=== PATIENT | male | born 1980 | race Caucasian/White ===

== ENCOUNTER 2020-10-24 01:26 | Observation (INO) ==
[2020-10-24 02:11] LABS: Basophils % 0.4 % (0.0-0.8); Eosinophils # 0.3 10*3/uL (0.0-0.87); Eosinophils % 3.6 % (0.00-10.9); Hematocrit 48.7 VOL% (42.0-52.0); Hemoglobin 15.8 GM/DL (14.0-18.0); Immature Granulocytes % 0.3 %; Immature Granulocytes Absolute 0.03 #; Lymphocytes # 4.1 10*3/uL (1.4-4.0); Lymphocytes % 45.9 % (21.2-54.2); Mean Corpuscular HGB Conc 32.4 GM/DL (32-36); Mean Corpuscular Volume 100.6 FL (87-102); Mean Platelet Volume 11.6 FL (9.6-12.0); Monocytes % 9.5 % (1.7-12.7); Neutrophils % 40.3 % (38.7-73.9); Platelet Count 210 T/CUMM (130-400); Red Blood Count 4.84 MC/CUMM (3.8-5.5); Red Cell Distribution Width 13.7 % (9.3-17.3)
[2020-10-24 02:19] LABS: Albumin 3.4 G/DL (3.4-5.0); Bilirubin,Total 0.5 MG/DL (0.2-1.0); Calcium 8.6 MG/DL (8.5-10.1); Osmolality,Calculated 282.5 MOS/KG (273-304); Potassium 3.9 MMOL/L (3.5-5.1); Total Protein 6.5 G/DL (5.0-7.5)
[2020-10-24 02:58] LABS: Eosinophils 7 % (0-10); Lymphocytes 51 % (20-55); Segmented Neutrophils 38 % (50-85); Total Cells Counted 100
[2020-10-24 02:59] LABS: Microcytosis Slight; Reactive Lymphocytes Few; Smudge Cells Few
[2020-10-24 03:00] LABS: Burr Cells Few; Ovalocytes Few; Schistocytes Few; Tear Drop Cells 1+
[2020-10-24 03:01] LABS: Platelet Estimate Decreased
[2020-10-24] MEDS ORDERED: NICOTINE 21 MG/24 HR PATCH TRANSDERM PRN (03:23)
[2020-10-24] MEDS ORDERED: hydrALAZINE 20 MG/1 ML VIAL IV PRN (03:23)
[2020-10-24] MEDS ORDERED: GLUCAGON 1 MG VIAL IM PRN (03:23)
[2020-10-24] MEDS ORDERED: ONDANSETRON 4 MG/2 ML VIAL IV PRN (03:23)
[2020-10-24] MEDS ORDERED: DEXTROSE 50% 25 GM/50 ML VIAL IV PRN (03:23)
[2020-10-24] MEDS ORDERED: ENOXAPARIN 80 MG/0.8 ML SYRINGE SUBCUT SCH ×2 (03:30→05:30)
[2020-10-24 03:54] LABS: Risk Ratio 3.91; Thyroid Stimulating Hormone 2.79 uIU/ml (0.358-3.74); VLDL CHOLESTEROL 61.8 MG/DL
[2020-10-24] MEDS ORDERED: NITROGLYCERIN SL 0.4 MG TABLET SL PRN (05:19)
[2020-10-24] MEDS ORDERED: ASPIRIN 325 MG TABLET PO SCH (09:00)
[2020-10-24] MEDS ORDERED: amLODIPine 5 MG TABLET PO STA (09:04)
[2020-10-24] MEDS ORDERED: POTASSIUM CHLORIDE RIDER 10 MEQ in PREMIX 1 EACH IV PRN (12:55)
[2020-10-24] MEDS ORDERED: MAGNESIUM SULF RIDER 2 GM in PREMIX 1 EACH IV PRN (12:55)
[2020-10-24 13:03] LABS: Barbiturates Screen,Urine Negative (Negative); Benzodiazepines Screen,Urine Negative (Negative); Cannabinoid Screen,Urine Positive (Negative); Opiate Screen,Urine Negative (Negative); Phencyclidine Screen,Urine Negative (Negative)
[2020-10-25] MEDS ORDERED: ENOXAPARIN 80 MG/0.8 ML SYRINGE SUBCUT SCH (03:30)
[2020-10-25 05:54] LABS: Basophils % 0.3 % (0.0-0.8); Eosinophils # 0.3 10*3/uL (0.0-0.87); Eosinophils % 4.9 % (0.00-10.9); Hematocrit 47.4 VOL% (42.0-52.0); Hemoglobin 15.8 GM/DL (14.0-18.0); Immature Granulocytes % 0.2 %; Immature Granulocytes Absolute 0.01 #; Lymphocytes # 2.5 10*3/uL (1.4-4.0); Lymphocytes % 39.1 % (21.2-54.2); Mean Corpuscular HGB Conc 33.3 GM/DL (32-36); Mean Corpuscular Volume 99.8 FL (87-102); Mean Platelet Volume 11.4 FL (9.6-12.0); Monocytes % 8.9 % (1.7-12.7); Neutrophils % 46.6 % (38.7-73.9); Platelet Count 186 T/CUMM (130-400); Red Blood Count 4.75 MC/CUMM (3.8-5.5); Red Cell Distribution Width 13.5 % (9.3-17.3); White Blood Count 6.5 T/CUMM (4-12)
[2020-10-25 06:16] LABS: Platelet Estimate Adequate
[2020-10-25 06:32] LABS: Calcium 8.4 MG/DL (8.5-10.1); Osmolality,Calculated 281.4 MOS/KG (273-304); Potassium 3.9 MMOL/L (3.5-5.1)
[2020-10-25] MEDS ORDERED: diphenhydrAMINE CAP 25 MG CAPSULE PO ONE (08:00)
[2020-10-25] MEDS ORDERED: DIAZEPAM 5 MG TABLET PO ONE (08:00)
[2020-10-25] MEDS: ASPIRIN EC 81 MG TABLET PO SCH (08:30)
[2020-10-25] MEDS: SODIUM CHLORIDE 0.9% 1,000 ML IV SCH ×2 (08:30→17:58)
[2020-10-25] MEDS ORDERED: amLODIPine 5 MG TABLET PO SCH (09:00)
[2020-10-25] MEDS ORDERED: HEPARIN/NACL 0.9% 2 UNITS/ML 1,000 ML IV ONE (09:30)
[2020-10-25] MEDS ORDERED: LIDOCAINE 1% 20 ML VIAL ONE (09:30)
[2020-10-25] MEDS ORDERED: diphenhydrAMINE 50 MG/1 ML VIAL ONE ×2 (09:48→11:02)
[2020-10-25] MEDS ORDERED: MIDAZOLAM 2 MG/2 ML VIAL ONE (09:48)
[2020-10-25] MEDS ORDERED: HYDROmorphone 2 MG/1 ML VIAL ONE (09:49)
[2020-10-25] MEDS: PANTOPRAZOLE 40 MG TABLET PO SCH (12:52)
[2020-10-25] MEDS: amLODIPine 2.5 MG TABLET PO SCH (12:52)
[2020-10-25] MEDS ORDERED: ATORVASTATIN 40 MG TABLET PO SCH (21:00)
[2020-10-26 04:15] VITALS: BP 118/77
[2020-10-26 07:35] LABS: Basophils % 0.3 % (0.0-0.8); Eosinophils # 0.3 10*3/uL (0.0-0.87); Eosinophils % 4.3 % (0.00-10.9); Hematocrit 43.4 VOL% (42.0-52.0); Hemoglobin 14.2 GM/DL (14.0-18.0); Immature Granulocytes % 0.3 %; Immature Granulocytes Absolute 0.02 #; Lymphocytes % 34.6 % (21.2-54.2); Mean Corpuscular HGB Conc 32.7 GM/DL (32-36); Mean Corpuscular Volume 99.8 FL (87-102); Mean Platelet Volume 11.7 FL (9.6-12.0); Monocytes % 7.2 % (1.7-12.7); Neutrophils % 53.3 % (38.7-73.9); Platelet Count 169 T/CUMM (130-400); Red Blood Count 4.35 MC/CUMM (3.8-5.5); Red Cell Distribution Width 13.3 % (9.3-17.3); White Blood Count 5.9 T/CUMM (4-12)
[2020-10-26 07:52] LABS: Calcium 8.3 MG/DL (8.5-10.1); Osmolality,Calculated 280.4 MOS/KG (273-304); Potassium 4.5 MMOL/L (3.5-5.1)
[2020-10-26] MEDS: ASPIRIN EC 81 MG TABLET PO SCH (08:39)
[2020-10-26] MEDS: PANTOPRAZOLE 40 MG TABLET PO SCH (08:39)
[2020-10-26] MEDS: amLODIPine 2.5 MG TABLET PO SCH (08:39)
[2020-10-26] MEDS: SODIUM CHLORIDE 0.9% 1,000 ML IV SCH (09:49)
== END 2020-10-26 10:56 | disposition home or self-care (01) ==
LOC: N.ED 01:26 → N.EDINP 01:26 → N.TELEN 16:03
PROVIDERS: ADMIT Internal Medicine; ATTEND Internal Medicine

== ENCOUNTER 2021-07-13 00:48 | Observation (INO) ==
[2021-07-13] MEDS ORDERED: ONDANSETRON 4 MG/2 ML VIAL IV PRN (02:09)
[2021-07-13] MEDS ORDERED: DEXTROSE 50% 25 GM/50 ML SYRINGE IV PRN (02:09)
[2021-07-13] MEDS ORDERED: GLUCAGON 1 MG VIAL IM PRN (02:09)
[2021-07-13] MEDS ORDERED: LORazepam 2 MG/1 ML VIAL IV PRN (02:15)
[2021-07-13] MEDS ORDERED: hydrALAZINE 20 MG/1 ML VIAL IV PRN (06:11)
[2021-07-13] MEDS ORDERED: ENOXAPARIN 40 MG/0.4 ML SYRINGE SUBCUT SCH (07:00)
[2021-07-13 07:08] LABS: Basophils # 0.1 10*3/uL (0.0-0.2); Basophils % 0.6 % (0.0-0.8); Eosinophils # 0.3 10*3/uL (0.0-0.87); Eosinophils % 3.3 % (0.00-10.9); Hemoglobin 16.4 GM/DL (14.0-18.0); Immature Granulocytes % 0.2 %; Immature Granulocytes Absolute 0.02 #; Lymphocytes # 3.4 10*3/uL (1.4-4.0); Lymphocytes % 39.4 % (21.2-54.2); Mean Corpuscular HGB Conc 33.5 GM/DL (32-36); Mean Corpuscular Volume 100.2 FL (87-102); Mean Platelet Volume 11.9 FL (9.6-12.0); Monocytes % 9.2 % (1.7-12.7); Neutrophils % 47.3 % (38.7-73.9); Platelet Count 214 T/CUMM (130-400); Red Blood Count 4.89 MC/CUMM (3.8-5.5); Red Cell Distribution Width 13.2 % (9.3-17.3); White Blood Count 8.6 T/CUMM (4-12)
[2021-07-13 07:31] LABS: Albumin 3.3 G/DL (3.4-5.0); Bilirubin,Total 1.3 MG/DL (0.20-1.00); Osmolality,Calculated 281.4 MOS/KG (273-304); Potassium 4.4 MMOL/L (3.5-5.1); Risk Ratio 4.21; Total Protein 6.4 G/DL (6.4-8.2); VLDL Cholesterol 47.6 MG/DL
[2021-07-13] MEDS: PANTOPRAZOLE 40 MG TABLET PO SCH (08:44)
[2021-07-13 09:51] LABS: Barbiturates Screen,Urine Negative (Negative); Benzodiazepines Screen,Urine Negative (Negative); Cannabinoid Screen,Urine Negative (Negative); Opiate Screen,Urine Negative (Negative); Phencyclidine Screen,Urine Negative (Negative)
[2021-07-13] MEDS ORDERED: ACETAMINOPHEN 325 MG TABLET PO PRN (09:57)
[2021-07-13] MEDS: ASPIRIN CHEW 81 MG TABLET PO SCH (09:59)
[2021-07-13] MEDS: amLODIPine 2.5 MG TABLET PO SCH (09:59)
[2021-07-13] MEDS: FUROSEMIDE 40 MG/4 ML VIAL IV SCH (10:03)
[2021-07-13] MEDS ORDERED: LIDOCAINE 1%/EPI INJ 20 ML VIAL MISC INJ ONE (10:25)
[2021-07-13] MEDS: SULFAMETHOX/TRIMETHOPRIM 800-160 MG TABLET PO SCH ×2 (15:19→20:33)
[2021-07-14 05:20] LABS: Basophils # 0.1 10*3/uL (0.0-0.2); Basophils % 0.5 % (0.0-0.8); Eosinophils # 0.3 10*3/uL (0.0-0.87); Eosinophils % 3.4 % (0.00-10.9); Hematocrit 49.9 VOL% (42.0-52.0); Hemoglobin 16.3 GM/DL (14.0-18.0); Immature Granulocytes % 0.3 %; Immature Granulocytes Absolute 0.03 #; Lymphocytes # 2.1 10*3/uL (1.4-4.0); Mean Corpuscular HGB Conc 32.7 GM/DL (32-36); Mean Corpuscular Volume 101.8 FL (87-102); Mean Platelet Volume 11.9 FL (9.6-12.0); Monocytes % 6.4 % (1.7-12.7); Neutrophils % 66.4 % (38.7-73.9); Platelet Count 208 T/CUMM (130-400); Red Cell Distribution Width 13.1 % (9.3-17.3); White Blood Count 9.3 T/CUMM (4-12)
[2021-07-14 05:41] LABS: Calcium 8.4 MG/DL (8.5-10.1); Osmolality,Calculated 277.7 MOS/KG (273-304); Potassium 3.6 MMOL/L (3.5-5.1)
[2021-07-14] MEDS: SULFAMETHOX/TRIMETHOPRIM 800-160 MG TABLET PO SCH (09:41)
[2021-07-14] MEDS: amLODIPine 2.5 MG TABLET PO SCH (09:42)
[2021-07-14] MEDS: PANTOPRAZOLE 40 MG TABLET PO SCH (09:42)
[2021-07-14] MEDS: ASPIRIN CHEW 81 MG TABLET PO SCH (09:42)
[2021-07-14] MEDS: FUROSEMIDE 40 MG/4 ML VIAL IV SCH (09:45)
[2021-07-14 12:20] VITALS: BP 129/98
== END 2021-07-14 13:39 | disposition home or self-care (01) ==
LOC: N.TELES → SUATTDRO 02:05
PROVIDERS: ADMIT Internal Medicine; ATTEND Emergency Medicine